=== PATIENT | male | born 1980 | race African-American/Black ===

== ENCOUNTER 2018-04-01 10:55 | Emergency (ER) | payer SELFPAY ==
--- NOTE | 2018-04-01 12:29 | RAD REPORT ---
EXAM DESCRIPTION: RAD - Chest Pa And Lat (2 Views) - 04/01/2018 12:18 pm CLINICAL HISTORY: shortness of breath. Hx of sponaneous pneumo;Chest pain Chest pain. COMPARISON: No comparisons FINDINGS: The lungs are clear. Linear scarring is present in the right mid lung. The heart is normal in size. No displaced fractures. IMPRESSION: No acute intrathoracic abnormality suspected.
--- NOTE | 2018-04-01 12:51 | EKG ---
Test Date: 2018-04-01 Test Time: 11:26:02 Slip Cover Cutter: YOVANI MEASUREMENT RESULTS: Intervals: Rate: 70 ND: 166 QRSD: 86 QT: 388 QTc: 419 Baldwin: P: 80 ND: 166 QRS: 78 T: 54 INTERPRETIVE STATEMENTS: Normal sinus rhythm Early repolarization Normal ECG No previous ECG available for comparison Electronically Signed On 04-01-18 12:50:35 [employer]NAL OFFICER by Chinmay Gutierrez
[2018-04-01 14:16] LABS: Absolute Lymphocytes (CBC) 2.3 K/uL (0.7-4.9); Absolute Neutrophil 4.7 K/uL (1.8-8.0); Basophils % 0.9 % (0-1.3); Eosinophils % 4.2 % (0-4.4); Hematocrit 46.4 % (39.6-49.0); Lymphocytes % 26.7 % (15.3-44.8); MPV 8.3 fL (7.6-11.3); Monocytes % 12.3 % (3.3-12.3); RBC Red Blood Cell Count 5.09 M/uL (4.33-5.43)
[2018-04-01 14:39] LABS: BUN Blood Urea Nitrogen 11 mg/dL (7-18); Bicarbonate 32 mmol/L (21-32); Glucose Level 85 mg/dL (74-106); Potassium 3.9 mmol/L (3.5-5.1); Sodium Level 141 mmol/L (136-145); Troponin (Emerg Dept Use Only) < 0.02 ng/mL (0.0-0.045)
--- NOTE | 2018-04-01 15:53 | EDPHYS ---
Physician Documentation [facility] Name: Jose Luis Gutierrez Jr Age: 37 yrs Sex: Male : 1980 Arrival Date: 04/01/2018 Time: 11:01 Bed 24 Private MD: ED Physician Carlos Daley HPI: 04/01 15:46 This 37 yrs old Black Male presents to ER via Ambulatory with complaints of Chest Pain. rn 15:46 The patient or guardian reports chest pain that is located primarily in the anterior rn chest wall, left. The pain does not radiate. Associated signs and symptoms: Pertinent positives: None. Pertinent negatives: cough, diaphoresis, dizziness, headache, lower extremity pain, lower extremity swelling, lightheadedness, nausea, recent travel, shortness of breath, syncope, vomiting. The chest pain is described as aching. Modifying factors: The symptoms are alleviated by nothing. the symptoms are aggravated by nothing. Severity of pain: At its worst the pain was mild in the emergency department the pain is unchanged. The patient has not experienced similar symptoms in the past. The patient has not recently seen a physician. 15:47 Reports left sided chest pain, achy, non-radiating, not assoc with sob, no cough, + rn smoker, no family history of early cardiac problems. . Historical: - Allergies: 11:18 No Known Allergies; aa5 - Home Meds: 11:18 None [Active]; aa5 - PMHx: 11:18 None; aa5 - PSHx: 11:18 Right collapsed lung-chest tube; aa5 - Immunization history:: Adult Immunizations up to date. - Social history:: Smoking status: Patient uses tobacco products. - Ebola Screening: : No symptoms or risks identified at this time. - Family history:: not pertinent. - Hospitalizations: : No recent hospitalization is reported. ROS: 15:47 Constitutional: Negative for fever, chills, and weight loss, Eyes: Negative for injury, rn pain, redness, and discharge, Neck: Negative for injury, pain, and swelling, Cardiovascular: Negative for palpitations, and edema, Respiratory: Negative for shortness of breath, cough, wheezing Abdomen/GI: Negative for abdominal pain, nausea, vomiting, diarrhea, and constipation, Back: Negative for injury and pain, MS/Extremity: Negative for injury and deformity, Skin: Negative for injury, rash, and discoloration, Neuro: Negative for headache, weakness, numbness, tingling, and seizure. Exam: 15:47 Constitutional: This is a well developed, well nourished patient who is awake, alert, rn and in no acute distress. Head/Face: Normocephalic, atraumatic. Eyes: Pupils equal round and reactive to light, extra-ocular motions intact. Lids and lashes normal. Conjunctiva and sclera are non-icteric and not injected. Cornea within normal limits. Periorbital areas with no swelling, redness, or edema. Neck: Trachea midline, no thyromegaly or masses palpated, and no cervical lymphadenopathy. Supple, full range of motion without nuchal rigidity, or vertebral point tenderness. No Meningismus. Chest/axilla: Normal chest wall appearance and motion. Nontender with no deformity. No lesions are appreciated. Cardiovascular: Regular rate and rhythm with a normal S1 and S2. No gallops, murmurs, or rubs. No JVD. No pulse deficits. Respiratory: Lungs have equal breath sounds bilaterally, clear to auscultation. No rales, rhonchi or wheezes noted. No increased work of breathing, no retractions or nasal flaring. Abdomen/GI: soft, non-tender MS/ Extremity: Pulses equal, no cyanosis. Neurovascular intact. Full, normal range of motion. Equal circumference. Neuro: Awake and alert, GCS 15, oriented to person, place, time, and situation. Cranial nerves II-XII grossly intact. Motor strength 5/5 in all extremities. Sensory grossly intact. Vital Signs: 11:19 BP 143 / 95; Pulse 70; Resp 18 S; Temp 97.9(TE); Pulse Ox 100% on R/A; Weight 81.65 kg aa5 (R); Height 6 ft. 0 in. (182.88 cm) (R); Pain 9/10; 13:00 BP 148 / 99; Pulse 72; Resp 16; Pulse Ox 99% on R/A; Pain 6/10; ls4 14:12 BP 151 / 99; Pulse 77; Resp 18; Pulse Ox 99% on R/A; Pain 3/10; ls4 15:20 BP 152 / 98; Pulse 72; Resp 18; Pulse Ox 98% on R/A; Pain 3; ls4 16:13 BP 140 / 82; Pulse 70; Resp 16; Pulse Ox 99% ; Pain 09/02; ls4 11:19 Body Mass Index 24.41 (81.65 kg, 182.88 cm) aa5 11:19 at worse 01/02 aa5 MDM: 13:36 Patient medically screened. rn 15:51 Differential diagnosis: acute pericarditis, gastritis, pericarditis, pleurisy, rn pneumonia, pneumothorax. Data reviewed: vital signs, nurses notes, lab test result(s), EKG, radiologic studies, plain films, and as a result, I will discharge patient. Counseling: I had a detailed discussion with the patient and/or guardian regarding: the historical points, exam findings, and any diagnostic results supporting the discharge/admit diagnosis, lab results, radiology results, the need for outpatient follow up, to return to the emergency department if symptoms worsen or persist or if there are any questions or concerns that arise at home. Special discussion: Based on the patient's history, exam, and Dx evaluation, there is no indication for emergent intervention or inpatient Tx. It is understood by the patient/guardian that if the Sx's persist or worsen they need to return immediately for re-evaluation. I discussed with the patient/guardian in detail that at this point there is no indication for admission to the hospital. It is understood, however, that if the symptoms persist or worsen the patient needs to return immediately for re-evaluation. 04/01 13:44 Order name: CBC with Diff; Complete Time: 15:23 rn 04/01 13:44 Order name: Basic Metabolic Panel; Complete Time: 15:23 rn 04/01 11:19 Order name: EKG; Complete Time: 11:20 04/01 11:19 Order name: EKG - Nurse/Tech; Complete Time: 13:32 ss 04/01 11:20 Order name: XRAY Chest Pa And Lat (2 Views); Complete Time: 13:36 ss 04/01 13:44 Order name: Troponin (emerg Dept Use Only); Complete Time: 15:23 rn 04/01 13:44 Order name: IV Start; Complete Time: 13:49 rn Administered Medications: No medications were administered Disposition: 04/01/18 15:52 Discharged to Home. Impression: Chest pain, unspecified. - Condition is Stable. - Discharge Instructions: Nonspecific Chest Pain, Steps to Quit Smoking. - Prescriptions for Ibuprofen 800 mg Oral Tablet - take 1 tablet by ORAL route every 12 hours As needed take with food; 20 tablet. Medrol (Brijesh) 4 mg Oral Tablets, Dose Pack - take 1 tablet by ORAL route as directed - follow package instructions; 1 packet. - Medication Reconciliation Form, Thank You Letter, Antibiotic Education, Prescription Opioid Use form. - Follow up: Private Physician; When: As needed; Reason: Recheck today's complaints, Re-evaluation by your physician. - Problem is new. - Symptoms have improved. Signatures: Dispatcher [employer] EDMS Carlos Daley MD MD rn Calderon, Audri RN RN aa5 Cesia Anand RN RN ss Arabella Luo RN RN ls4 Corrections: (The following items were deleted from the chart) 16:18 15:52 04/01/2018 15:52 Discharged to Home. Impression: Chest pain, unspecified. ls4 Condition is Stable. Forms are Medication Reconciliation Form, Thank You Letter, Antibiotic Education, Prescription Opioid Use. Follow up: Private Physician; When: As needed; Reason: Recheck today's complaints, Re-evaluation by your physician. Problem is new. Symptoms have improved. rn
--- NOTE | 2018-04-01 15:53 | ER ---
Nurse's Notes [facility] Name: Jose Luis Gutierrez Jr Age: 37 yrs Sex: Male : 1980 Arrival Date: 04/01/2018 Time: 11:01 Bed 24 Private MD: Diagnosis: Chest pain, unspecified Presentation: 04/01 11:17 Presenting complaint: Patient states: pain to left anterior aspect of chest and SOB aa5 that began 1 week ago. Transition of care: patient was not received from another setting of care. Onset of symptoms was March 2018. Risk Assessment: Do you want to hurt yourself or someone else? Patient reports no desire to harm self or others. Initial Sepsis Screen: Does the patient meet any 2 criteria? No. Patient's initial sepsis screen is negative. Does the patient have a suspected source of infection? No. Patient's initial sepsis screen is negative. Care prior to arrival: None. 11:17 Method Of Arrival: Ambulatory aa5 11:17 Acuity: RUCHI 3 aa5 Triage Assessment: 13:45 General: Appears in no apparent distress. Behavior is calm, cooperative. Pain: ls4 Complains of pain in chest Pain does not radiate. Pain currently is 6 out of 10 on a pain scale. Quality of pain is described as stabbing, Pain began 2-3 days ago. Alleviated by nothing. Aggravated by none. Cardiovascular: Reports chest pain, Denies diaphoresis, fatigue, lightheadedness, nausea, palpitations, syncope, vomiting, Heart tones S1 S2 Capillary refill < 3 seconds Rhythm is regular. Respiratory: Reports shortness of breath at rest Airway is patent Respiratory effort is even, unlabored, Respiratory pattern is regular, Breath sounds are clear bilaterally. Musculoskeletal: No deficits noted. Historical: - Allergies: 11:18 No Known Allergies; aa5 - Home Meds: 11:18 None [Active]; aa5 - PMHx: 11:18 None; aa5 - PSHx: 11:18 Right collapsed lung-chest tube; aa5 - Immunization history:: Adult Immunizations up to date. - Social history:: Smoking status: Patient uses tobacco products. - Ebola Screening: : No symptoms or risks identified at this time. - Family history:: not pertinent. - Hospitalizations: : No recent hospitalization is reported. Screenin:48 Abuse screen: Denies threats or abuse. Denies injuries from another. Nutritional ls4 screening: No deficits noted. Tuberculosis screening: No symptoms or risk factors identified. Fall Risk None identified. Assessment: 11:30 Pain: Complains of pain in chest Pain currently is 6 out of 10 on a pain scale. Neuro: ls4 No deficits noted. Cardiovascular: No deficits noted. Respiratory: No deficits noted. Derm: No deficits noted. Vital Signs: 11:19 BP 143 / 95; Pulse 70; Resp 18 S; Temp 97.9(TE); Pulse Ox 100% on R/A; Weight 81.65 kg aa5 (R); Height 6 ft. 0 in. (182.88 cm) (R); Pain 9/10; 13:00 BP 148 / 99; Pulse 72; Resp 16; Pulse Ox 99% on R/A; Pain 6/10; ls4 14:12 BP 151 / 99; Pulse 77; Resp 18; Pulse Ox 99% on R/A; Pain 3/10; ls4 15:20 BP 152 / 98; Pulse 72; Resp 18; Pulse Ox 98% on R/A; Pain 3/10; ls4 16:13 BP 140 / 82; Pulse 70; Resp 16; Pulse Ox 99% ; Pain 6/10; ls4 11:19 Body Mass Index 24.41 (81.65 kg, 182.88 cm) aa5 11:19 at worse 01/02 aa5 ED Course: 11:01 Patient arrived in ED. sb2 11:17 Arm band placed on. aa5 11:18 Triage completed. aa5 11:20 Patient has correct armband on for positive identification. Bed in low position. Call ls4 light in reach. Side rails up X 1. 11:20 monitoring and evaluation advisor on. Pulse ox on. NIBP on. Warm blanket given. ls4 12:17 X-ray completed. Patient tolerated procedure well. Patient moved to radiology jb2 AMBULATORY. Patient moved back from radiology. 12:19 XRAY Chest Pa And Lat (2 Views) In Process Unspecified. EDMS 12:22 EKG done, by greenhouse technician. reviewed by Carlos Daley MD. sm3 13:36 Carlos Daley MD is Attending Physician. rn 13:58 Troponin (emerg Dept Use Only) Sent. ag 13:58 Basic Metabolic Panel Sent. ag 13:58 CBC with Diff Sent. ag 13:58 Inserted saline lock: 20 gauge in right antecubital area, using aseptic technique. ag Blood collected. 14:44 Arabella Luo, RN is Primary Nurse. ls4 16:15 No provider procedures requiring assistance completed. IV discontinued, intact, ls4 bleeding controlled, No redness/swelling at site. Pressure dressing applied. 16:17 Patient maintains SpO2 saturation greater than 95% on room air. ls4 Administered Medications: No medications were administered Outcome: 15:52 Discharge ordered by MD. rn 16:17 Discharged to home ambulatory, with family. ls4 16:17 Condition: stable 16:17 Discharge instructions given to patient, family, Instructed on discharge instructions, follow up and referral plans. medication usage, Demonstrated understanding of instructions, follow-up care, medications, Prescriptions given X 2. 16:18 Patient left the ED. ls4 Signatures: Dispatcher [employer] Efraín Vegas Roman, MD MD rn Calderon, Audri RN RN aa5 Leni Mueller Sheri 2 Annetta Higuera 3 Arabella Luo, RN RN ls4
== END 2018-04-01 16:18 | disposition home or self-care (01) ==
LOC: ER 10:55
DX: R07.9 Chest pain, unspecified (principal); Z72.0 Tobacco use
CPT/HCPCS: 36415; 71046; 80048; 84484; 85025; 93005; 99285